=== PATIENT | male | born 1945 | race Caucasian/White ===

== ENCOUNTER 2017-02-23 17:59 | Inpatient (IN) | payer MEDICARE ==
[2017-02-23] MEDS ORDERED: NALOXONE 0.4 MG/ML 1 ML VIAL IV PRN (18:14)
--- NOTE | 2017-02-23 18:14 | ED ---
Fever HPI - General Stated Complaint: Neutropenia/sepsis Time Seen by Provider: 02/23/17 18:11 - History of Present Illness Initial Comments: Patient is sent to the emergency Department from an outside facility. Patient has already had a workup, and been diagnosed with sepsis. Patient has been started on antibiotics. Patient denies any belly or back pain. Nothing makes his symptoms better or worse. Review of Systems ROS Statement: Those systems with pertinent positive or pertinent negative responses have been documented in the HPI. ROS Other: All systems not noted in ROS Statement are negative. General Exam General appearance: alert, in no apparent distress Head exam: Present: atraumatic, normocephalic, normal inspection Eye exam: Present: normal appearance, PERRL, EOMI. Absent: scleral icterus, conjunctival injection, periorbital swelling ENT exam: Present: normal exam, mucous membranes moist Neck exam: Present: normal inspection. Absent: tenderness, meningismus, lymphadenopathy Respiratory exam: Present: normal lung sounds bilaterally. Absent: respiratory distress, wheezes, rales, rhonchi, stridor Cardiovascular Exam: Present: regular rate, normal rhythm, normal heart sounds. Absent: systolic murmur, diastolic murmur, rubs, gallop, clicks GI/Abdominal exam: Present: soft, normal bowel sounds. Absent: distended, tenderness, guarding, rebound, rigid Extremities exam: Present: normal inspection, full ROM, normal capillary refill. Absent: tenderness, pedal edema, joint swelling, calf tenderness Back exam: Present: normal inspection Neurological exam: Present: alert, oriented X3, CN II-XII intact Psychiatric exam: Present: normal affect, normal mood Skin exam: Present: warm, dry, intact, normal color. Absent: rash Medical Decision Making - Medical Decision Making patient sent from outside hospital for admission. He is admitted for sepsis. Disposition Clinical Impression: Sepsis Disposition: ADMITTED IP TO THIS [facility] Referrals: Meghann Worley MD [Primary Care Provider] - 1-2 days Time of Disposition: 18:14
[2017-02-23 20:25] VITALS: BMI 20.7
[2017-02-23] MEDS ORDERED: BENZONATATE 100 MG CAP PO PRN (21:25)
[2017-02-23] MEDS ORDERED: traMADol 50 MG TAB PO PRN (21:25)
[2017-02-23] MEDS ORDERED: ACETAMINOPHEN TAB 325 MG TAB PO PRN (21:33)
[2017-02-24] MEDS: SODIUM CHLORIDE 0.9% 1,000 ML IV SCH ×3 (00:13→17:33)
[2017-02-24] MEDS ORDERED: HYDROcodone/APAP 5-325MG 1 EACH TAB PO PRN (00:33)
[2017-02-24] MEDS ORDERED: ALPRAZolam 0.25 MG TAB PO PRN (00:33)
[2017-02-24] MEDS ORDERED: TEMAZEPAM 15 MG CAP PO PRN (00:34)
[2017-02-24] MEDS ORDERED: CEFEPIME 2 GM in SODIUM CHLORIDE 0.9% 50 ML IVPB ONE (01:00)
[2017-02-24 01:35] LABS: Anion Gap 9 mmol/L; Blood Urea Nitrogen 26 mg/dL (9-20); Calcium 8.4 mg/dL (8.4-10.2); Carbon Dioxide 22 mmol/L (22-30); Chloride 103 mmol/L (98-107); Glucose 135 mg/dL (74-99); Non-African American GFR(MDRD) >60 (>60 ml/min/1.73 sqM); Potassium 3.2 mmol/L (3.5-5.1); Sodium 134 mmol/L (137-145)
[2017-02-24 02:04] LABS: Aty Lym Flag Marked; CH 31.4; CHCM 33.4; HCT 25.4 % (39.0-53.0); HDW 2.82; HGB 8.6 gm/dL (13.0-17.5); Immature Gran Flag Marked; MCH 31.8 pg (25.0-35.0); MCHC 33.8 g/dL (31.0-37.0); MCV 94.2 fL (80.0-100.0); Mean Platelet Volume 8.8; RDW 15.8 % (11.5-15.5); WBC (Perox) 1.97
[2017-02-24 03:01] LABS: Add Differential Manual Differential
[2017-02-24 03:27] LABS: Band Neutrophils % 13 %; Metamyelocytes % 1 %; Nucleated Red Blood Cells 1 /100 WBC (0-0); Total Cells Counted 200
[2017-02-24 03:28] LABS: Polychromasia Present
[2017-02-24 07:36] LABS: Glucose,Whole Blood 98 mg/dL (75-99)
[2017-02-24] MEDS: INSULIN LISPRO (humaLOG) 300 UNIT/3 ML VIAL SQ SCH ×4 (08:13→21:29)
[2017-02-24] MEDS: ALLOPURINOL 100 MG TAB PO SCH ×2 (08:14→08:16)
[2017-02-24] MEDS: CEFEPIME 2 GM in SODIUM CHLORIDE 0.9% 50 ML IVPB SCH ×3 (08:14→23:18)
[2017-02-24 09:14] LABS: ALT 34 U/L (21-72); AST 20 U/L (17-59); Alkaline Phosphatase 76 U/L (38-126); Anion Gap 9 mmol/L; Blood Urea Nitrogen 23 mg/dL (9-20); Calcium 8.5 mg/dL (8.4-10.2); Carbon Dioxide 25 mmol/L (22-30); Chloride 105 mmol/L (98-107); Glucose 118 mg/dL (74-99); Non-African American GFR(MDRD) >60 (>60 ml/min/1.73 sqM); Potassium 3.2 mmol/L (3.5-5.1); Sodium 139 mmol/L (137-145); Total Bilirubin 0.3 mg/dL (0.2-1.3); Total Protein 5.4 g/dL (6.3-8.2)
[2017-02-24 10:01] LABS: Hemoglobin A1C 7.2 % (4.2-6.1)
--- NOTE | 2017-02-24 10:03 | HP ---
HISTORY AND PHYSICAL DATE OF SERVICE: 02/23/2017. CHIEF COMPLAINT: Weakness and possible sepsis. 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 Worley in the outpatient setting. The patient is also receiving chemotherapy from Dr. Lopez. The last chemotherapy was last week. The patient presented to [facility] with complaints of fever and hospice weakness. The patient was found to be hypotensive with pressure initially 114 but subsequently 76. Responded to IV fluids nicely. The patient was started on broad- spectrum IV antibiotics. White count is 1.1 and sepsis was considered and patient was sent to [facility] for evaluation and treatment. Patient admitted at this time. The patient also complains of hemoptysis about 2-3 days ago. The patient also had a petechial rashes also. There is no history of any rigors, chills. No history of headache loss of consciousness or seizures. PAST MEDICAL HISTORY: History of recently diagnosed lung cancer, history of CAD, history of COPD, diabetes, hypertension, hyperlipidemia, history of abdominal aortic aneurysm, history of gout. MEDICATIONS: Prior to admission include home medications are: 1. Ultram 50 mg q.6h p.r.n. 2. Tessalon 100 mg t.i.d. p.r.n. 3. Zyloprim 100 mg p.o. daily. 4. Glucovance 500 mg p.o. b.i.d. ALLERGIES: LIPITOR, LISINOPRIL. FAMILY HISTORY: History of cancer in the family. SOCIAL HISTORY: Previous history of smoking. Occasional alcohol intake. REVIEW OF SYSTEMS: ENT: No diminished hearing or vision. CARDIOVASCULAR: No angina. RESPIRATORY: As mentioned earlier. GI: No nausea. : No dysuria. NERVOUS SYSTEM: No numbness or weakness. ALLERGY/IMMUNOLOGY: No asthma or hayfever. MUSCULOSKELETAL: As mentioned. HEMATOLOGY: As mentioned. ENDOCRINE: No history of diabetes, hypertension. CONSTITUTIONAL: As mentioned. DERMATOLOGY: Negative. RHEUMATOLOGY: Negative. PSYCHIATRY: As mentioned earlier. PHYSICAL EXAMINATION: Patient is alert and oriented x3. Pulse is 108, blood pressure 111/69, respiration 18, temperature 96.9, pulse ox 94% room air. HEENT: Conjunctivae normal. Oral mucous moist. NECK: No jugular venous distention. No carotid bruit. No lymph node enlargement. CARDIOVASCULAR: S1, S2. No S3, no S4. RESPIRATORY: Breath sounds diminished in the bases. A few scattered rhonchi and crackles. Expiratory wheezing also present. ABDOMEN: Soft, nontender. No mass palpable. EXTREMITIES: No swelling. NERVOUS SYSTEM: Higher functions as mentioned. Moves all four limbs. No focal motor deficits. LYMPHATICS: No lymphadenopathy in the neck, axillae, or groin. SKIN: No rash, ulcer or bleeding. LABS: At this time shows: lactic acid 1.4. Further labs are pending at this time. ASSESSMENT: 1. Neutropenic sepsis. 2. Small-cell lung cancer on the right, status post chemotherapy. 3. Pancytopenia secondary to chemotherapy. 4. Hemoptysis. 5. History of coronary artery disease. 6. History of chronic obstructive pulmonary disease. 7. Hypertension. 8. Hyperlipidemia. 9. Degenerative joint disease. 10.History of gout. 11.History of abdominal aortic aneurysm. 12.History of coronary artery disease and stent. RECOMMENDATIONS AND DISCUSSION: In this 71-year-old gentleman who presented with multiple complex medical issues, will monitor patient closely. Continue the current management and continue symptomatic treatment. Otherwise I would recommend close follow up and Hematology Oncology is consulted. Portable chest x-ray will be ordered and continue to monitor. Guarded prognosis because of multiple complex medical issues. Further recommendations to follow. Repeat labs have been requested. Symptomatic treatment also will be provided. Guarded prognosis because of multiple complex medical issues. Further recommendations to follow. MMODL / IJN: [id number] /
[2017-02-24 11:33] LABS: Glucose,Whole Blood 108 mg/dL (75-99)
[2017-02-24] MEDS ORDERED: Potassium Replacement Protocol 1 EACH MISC MISCELLANE PRN ×2 (12:49→13:23)
[2017-02-24] MEDS ORDERED: Magnesium Replacement Protocol 1 EACH MISC MISCELLANE PRN (12:52)
[2017-02-24] MEDS: POTASSIUM CHLORIDE ER 20 MEQ TAB.ER PO SCH ×2 (13:44→15:20)
[2017-02-24 14:20] LABS: Appearance,Urine Clear (Clear); Bilirubin,Urine Negative (Negative); Glucose,Urine (UA) Negative (Negative); Ketones,Urine Negative (Negative); Leukocyte Esterase,Urine Negative (Negative); Nitrite,Urine Negative (Negative); PH, Urine 5.5 (5.0-8.0); Protein,Urine Trace (Negative); Specific Gravity,Urine 1.018 (1.001-1.035); UA Billing (MACRO vs. MICRO) CHEM; Urobilinogen,Urine <2.0 mg/dL (<2.0)
[2017-02-24 17:20] LABS: Glucose,Whole Blood 113 mg/dL (75-99)
--- NOTE | 2017-02-24 17:23 | P.PN ---
Subjective Date of service 02/24/2017. Progress note being dictated for Dr. Sutherland Interval history: This is a 71-year-old gentleman admitted with neutropenic sepsis, pancytopenia, hemoptysis in a patient with history of small cell lung CA , status post chemotherapy and multiple other medical issues. No further hemoptysis. Good diet intake, consuming 100%. Evaluated by a infectious disease and Levaquin added to antibiotic regimen in addition to cefepime. Afebrile. Blood, urine and sputum cultures pending. Chest x-ray pending. Status post fluid boluses; Blood pressure stable, tachycardic with heart rates in the low 100s. Hypokalemic, potassium 3.2. TIBC 2, neutrophils 0.4, hemoglobin 8.6, platelets 147. Review of systems: CONSTITUTIONAL: Reports fever, fatigue, weakness. No vigorous chills HEENT: No recent visual problems or hearing problems. Denies sore throat, consuming 100% of diet. CARDIOVASCULAR: No chest pain, orthopnea, PND, no palpitations, no syncope. PULMONARY: No shortness of breath, positive cough, prior hemoptysis. GASTROINTESTINAL: No diarrhea, no nausea, no vomiting, no abdominal pain. Normoactive bowel sounds. NEUROLOGICAL: No headaches, generalized weakness, no numbness. No loss of consciousness, no seizures HEMATOLOGICAL: Denies any bleeding. Positive petechiae rash. GENITOURINARY: Denies any burning micturition, frequency, or urgency. MUSCULOSKELETAL/RHEUMATOLOGICAL: Denies any joint pain, swelling, or any muscle pain. ENDOCRINE: Denies any polyuria or polydipsia. PSYCHIATRIC: No anxiety, no depression Active Medications Acetaminophen (Tylenol Tab) 650 mg PO Q6HR PRN PRN Reason: Fever and/ or mild pain Hydrocodone Bitart/Acetaminophen (Malone 5-325) 1 each PO Q6HR PRN PRN Reason: Moderate to Severe Pain Allopurinol (Zyloprim) 100 mg PO DAILY [facility] Last Admin: 02/24/17 08:16 Dose: Not Given Alprazolam (Xanax) 0.25 mg PO TID PRN PRN Reason: Anxiety Benzonatate (Tessalon Perles) 100 mg PO TID PRN PRN Reason: Cough Sodium Chloride (Saline 0.9%) 1,000 mls @ 100 mls/hr IV .Q10H [facility] Last Admin: 02/24/17 08:14 Dose: 100 mls/hr Cefepime HCl 2 gm/ Sodium (Chloride) 50 mls @ 100 mls/hr IVPB Q8HR [facility] Last Admin: 02/24/17 15:23 Dose: 100 mls/hr Insulin Human Lispro (Humalog) 0 unit SQ ACHS REED PRN Reason: Protocol Last Admin: 02/24/17 12:10 Dose: Not Given Levofloxacin (Levaquin) 750 mg PO 1600 [facility] Miscellaneous Information (Magnesium Per Protocol) 1 each MISCELLANE DAILY PRN ; Protocol PRN Reason: Per Protocol Miscellaneous Information (Potassium Per Protocol) 1 each MISCELLANE DAILY PRN ; Protocol PRN Reason: Per Protocol Naloxone HCl (Narcan) 0.2 mg IV Q2M PRN PRN Reason: Opioid Reversal Ondansetron HCl (Zofran) 4 mg IVP Q6HR PRN PRN Reason: Nausea And Vomiting Temazepam (Restoril) 15 mg PO HS PRN PRN Reason: Insomnia Tramadol HCl (Ultram) 50 mg PO Q6HR PRN PRN Reason: Pain Objective - Vital Signs Vital signs: Vital Signs Temp 97.6 F 02/24/17 15:00 Pulse 104 H 02/24/17 15:00 Resp 16 02/24/17 15:00 BP 121/71 02/24/17 15:00 Pulse Ox 94 L 02/24/17 15:00 Intake & Output 02/23/17 02/24/17 02/24/17 18:59 06:59 18:59 Output Total 300 Balance -300 Weight 62.142 kg 63.6 kg 63.6 kg Output: Urine 300 Other: Voiding Method Urinal Urinal # Voids 1 3 # Bowel Movements 1 1 - Exam PHYSICAL EXAM: VITAL SIGNS: As above GENERAL: Sitting up in bed, no acute distress HEENT: Conjunctivae normal. eyes normal. Oral mucosa moist. NECK: No JVD. No thyroid enlargement. No LNs CARDIOVASCULAR: S1, S2 muffled. No murmur RESPIRATION: Breath sounds diminished in the bases. Bilateral expiratory wheezing with Occasional scattered rhonchi, no crackles. No bronchial breathing. ABDOMEN: Soft, nontender . No guarding. no masses palpable. Positive Bowel sounds. LEGS: No edema. no swelling PSYCHIATRY: Alert and oriented -3, mood and affect normal. NERVOUS SYSTEM: Cranial N 2-12 grossly normal. Moves all 4 limbs. No focal deficits. No sensory deficit. Skin: no ulcer petechiae rashes scattered on extremities Joints: No active swelling. No inflammation. Lymphatic system. No LN neck axilla or groin. - Labs CBC & Chem 7: 02/24/17 00:46 02/24/17 08:32 Labs: Abnormal Lab Results - Last 24 Hours (Table) 02/23/17 02/24/17 02/24/17 Range/Units 22:11 00:46 00:46 WBC 2.0 L* (3.8-10.6) k/uL RBC 2.70 L (4.30-5.90) m/uL Hgb 8.6 L (13.0-17.5) gm/dL Hct 25.4 L (39.0-53.0) % RDW 15.8 H (11.5-15.5) % Plt Count 147 L (150-450) k/uL Neutrophils # (Manual) 0.40 L (1.3-7.7) k/uL Metamyelocytes # (Man) 0.02 H (0) k/uL Nucleated RBCs 1 H (0-0) /100 WBC Sodium 134 L (137-145) mmol/L Potassium 3.2 L (3.5-5.1) mmol/L BUN 26 H (9-20) mg/dL Glucose 135 H (74-99) mg/dL POC Glucose (mg/dL) (75-99) mg/dL Hemoglobin A1c 7.2 H (4.2-6.1) % Total Protein (6.3-8.2) g/dL Albumin (3.5-5.0) g/dL Urine Protein (Negative) 02/24/17 02/24/17 02/24/17 Range/Units 08:32 11:31 13:00 WBC (3.8-10.6) k/uL RBC (4.30-5.90) m/uL Hgb (13.0-17.5) gm/dL Hct (39.0-53.0) % RDW (11.5-15.5) % Plt Count (150-450) k/uL Neutrophils # (Manual) (1.3-7.7) k/uL Metamyelocytes # (Man) (0) k/uL Nucleated RBCs (0-0) /100 WBC Sodium (137-145) mmol/L Potassium 3.2 L (3.5-5.1) mmol/L BUN 23 H (9-20) mg/dL Glucose 118 H (74-99) mg/dL POC Glucose (mg/dL) 108 H (75-99) mg/dL Hemoglobin A1c (4.2-6.1) % Total Protein 5.4 L (6.3-8.2) g/dL Albumin 2.7 L (3.5-5.0) g/dL Urine Protein Trace H (Negative) Assessment and Plan Plan: 1. Neutropenic sepsis 2. Small cell lung CA on the right, status post chemotherapy 3. Pancytopenia secondary to chemotherapy 4. Hemoptysis 5. CAD, history of stent 6. History of abdominal aortic aneurysm 7. Hypokalemia Plan: Continue on current medication regime ,monitoring and symptomatic treatment. Antibiotics as per infectious disease. Electrolyte supplementation as per ordered replacement protocol. follow closely with oncology. Close monitoring of electrolytes, WBC, platelets, hemoglobin, neutrophils with repeat labs ordered for a.m. family discussing potential hospice. Further recommendations to follow. The impression and plan of care has been dictated as directed as a scribe. : I performed a H&P examination of this patient and discussed the same with the dictator. I agree with the dictator's note. Any additional findings/opinions/ etc. will be noted.
[2017-02-24] MEDS: LEVOFLOXACIN 750 MG TAB PO SCH (17:34)
--- NOTE | 2017-02-24 17:57 | P.CONS ---
History of Present Illness - Reason for Consult Consult date: 02/24/17 SIRS, possible sepsis, lung cancer on chemo - History of Present Illness Mr. Valadez is a 71-year-old white male, well known to our service. The patient was diagnosed with stage III squamous cell carcinoma of the lung, in early 2017. He underwent concurrent chemoradiation with [employer]-16 and cisplatin. He finished treatment about 3 months ago, with scans at that time showing a good partial response. He was seen in the office last week for first follow-up after restaging CAT scans. Unfortunately scan showed progression. The patient had also noted marked some dramatic decline, with decreased appetite, weakness, somewhat unsteady gait over the preceding 2-3 weeks. Started on second line chemotherapy with Taxol the first dose given last week. Tolerance was somewhat poor, with the patient noting further decrease in appetite, marked weakness and dizziness on standing up. He did receive some IV hydration, but symptoms continue to progress. He therefore went into the emergency room at [facility]. His family had the reported a fever in addition to the above symptoms. However the temperature noted was 100.1 ( greater than 100.4 being considered a fever). The patient however was markedly neutropenic with a total white count in the low 1000 range. In addition he appeared to be very weak and clinically dehydrated. Marked orthostatic hypotension was noted. The patient was therefore transferred here for further evaluation and and management. The patient has a stable cough. He denied any oral ulcers, new urinary or bowel complaints. He has been aggressively hydrated, and started on IV antibiotics. Review of Systems Constitutional: Reports fatigue, Reports malaise, Reports poor appetite, Reports weakness, Reports weight loss Eyes: denies blurred vision, denies pain Ears: deny: decreased hearing, ear discharge, earache, tinnitus Ears, nose, mouth and throat: Denies headache, Denies sore throat Cardiovascular: Reports lightheadedness, Reports shortness of breath Respiratory: Reports cough, Reports dyspnea Gastrointestinal: Reports constipation Genitourinary: Reports as per HPI (Decreased urine output. Otherwise no specific complaint) Musculoskeletal: Reports muscle weakness Integumentary: Denies pruritus, Denies rash Neurological: Reports weakness Psychiatric: Reports confusion (Mild, transient, when in the ER at [facility]) Endocrine: Reports weight change Hematologic/Lymphatic: Reports as per HPI Past Medical History Past Medical History: Coronary Artery Disease (CAD), Cancer, COPD, Diabetes Mellitus, Hyperlipidemia, Hypertension, Renal Disease Additional Past Medical History / Comment(s): lung CA (diagnosed in June), current chemo treatments (last one Feb 14), diverticulitis, gout, anemia, AAA , vascular problems in bilat legs, one functioning kidney History of Any Multi-Drug Resistant Organisms: None Reported Past Surgical History: Appendectomy, Heart Catheterization With Stent Additional Past Surgical History / Comment(s): Carotid endarterectomy on Right Past Anesthesia/Blood Transfusion Reactions: No Reported Reaction Date of Last Stent Placement:: 2010 Past Psychological History: No Psychological Hx Reported Smoking Status: Former smoker Past Alcohol Use History: None Reported Past Drug Use History: None Reported - Past Family History Brother(s) Family Medical History: Cancer Medications and Allergies Home Medications Medication Instructions Recorded Confirmed Type Allopurinol [Zyloprim] 100 mg PO DAILY 02/23/17 02/23/17 History Atp-Pro Powder 5 ml PO DAILY 02/23/17 02/23/17 History Benzonatate [Tessalon Perles] 100 mg PO TID PRN 02/23/17 02/23/17 History metFORMIN HCL [Glucophage] 500 mg PO BID 02/23/17 02/23/17 History traMADol HCL [Ultram] 50 mg PO Q6HR PRN 02/23/17 02/23/17 History Allergies Allergy/AdvReac Type Severity Reaction Status Date / Time atorvastatin [From Lipitor] Allergy Swelling Verified 02/23/17 20:19 lisinopril Allergy Swelling Verified 02/23/17 20:19 Physical Exam Vitals: Vital Signs Temp Pulse Pulse Resp BP BP Pulse Ox 02/24/17 15:00 97.6 F 104 H 16 121/71 94 L 02/24/17 07:00 97.7 F 106 H 16 129/67 95 02/23/17 23:00 98.8 F 121 H 16 91/50 93 L 02/23/17 22:00 16 02/23/17 19:46 96.9 F L 97 18 111/67 94 L 02/23/17 19:03 97.2 F L 108 H 20 102/62 96 02/23/17 18:30 106 H 02/23/17 18:21 97.2 F L 102 H 17 107/69 96 02/23/17 18:07 97.4 F L 104 H 18 102/62 96 Intake and Output 02/24/17 02/24/17 02/24/17 06:59 14:59 22:59 Output Total 300 Balance -300 Output: Urine 300 Other: Voiding Method Urinal # Voids 1 3 # Bowel Movements 1 1 Weight 63.6 kg Patient Weight 02/25/17 06:59 Weight 63.6 kg - Constitutional General appearance: no acute distress - EENT Oral cavity and lips mildly dry. Otherwise no major abnormalities Eyes: EOMI, PERRLA ENT: hearing grossly normal - Neck Neck: no lymphadenopathy Thyroid: bilateral: normal size - Respiratory Respiratory: bilateral: CTA - Cardiovascular Rhythm: regular Heart sounds: normal: S1, S2 - Gastrointestinal General gastrointestinal: normal bowel sounds, soft Localized gastrointestinal: tender: epigastric periumbilical - Integumentary Integumentary: normal - Neurologic Neurologic: CNII-XII intact - Musculoskeletal Musculoskeletal: generalized weakness - Psychiatric Psychiatric: A&O x's 3, appropriate affect, intact judgment & insight Results CBC & Chem 7: 02/24/17 00:46 02/24/17 08:32 Labs: Abnormal Lab Results - Last 24 Hours (Table) 02/23/17 02/24/17 02/24/17 Range/Units 22:11 00:46 00:46 WBC 2.0 L* (3.8-10.6) k/uL RBC 2.70 L (4.30-5.90) m/uL Hgb 8.6 L (13.0-17.5) gm/dL Hct 25.4 L (39.0-53.0) % RDW 15.8 H (11.5-15.5) % Plt Count 147 L (150-450) k/uL Neutrophils # (Manual) 0.40 L (1.3-7.7) k/uL Metamyelocytes # (Man) 0.02 H (0) k/uL Nucleated RBCs 1 H (0-0) /100 WBC Sodium 134 L (137-145) mmol/L Potassium 3.2 L (3.5-5.1) mmol/L BUN 26 H (9-20) mg/dL Glucose 135 H (74-99) mg/dL POC Glucose (mg/dL) (75-99) mg/dL Hemoglobin A1c 7.2 H (4.2-6.1) % Total Protein (6.3-8.2) g/dL Albumin (3.5-5.0) g/dL Urine Protein (Negative) 02/24/17 02/24/17 02/24/17 Range/Units 08:32 11:31 13:00 WBC (3.8-10.6) k/uL RBC (4.30-5.90) m/uL Hgb (13.0-17.5) gm/dL Hct (39.0-53.0) % RDW (11.5-15.5) % Plt Count (150-450) k/uL Neutrophils # (Manual) (1.3-7.7) k/uL Metamyelocytes # (Man) (0) k/uL Nucleated RBCs (0-0) /100 WBC Sodium (137-145) mmol/L Potassium 3.2 L (3.5-5.1) mmol/L BUN 23 H (9-20) mg/dL Glucose 118 H (74-99) mg/dL POC Glucose (mg/dL) 108 H (75-99) mg/dL Hemoglobin A1c (4.2-6.1) % Total Protein 5.4 L (6.3-8.2) g/dL Albumin 2.7 L (3.5-5.0) g/dL Urine Protein Trace H (Negative) 02/24/17 Range/Units 17:18 WBC (3.8-10.6) k/uL RBC (4.30-5.90) m/uL Hgb (13.0-17.5) gm/dL Hct (39.0-53.0) % RDW (11.5-15.5) % Plt Count (150-450) k/uL Neutrophils # (Manual) (1.3-7.7) k/uL Metamyelocytes # (Man) (0) k/uL Nucleated RBCs (0-0) /100 WBC Sodium (137-145) mmol/L Potassium (3.5-5.1) mmol/L BUN (9-20) mg/dL Glucose (74-99) mg/dL POC Glucose (mg/dL) 113 H (75-99) mg/dL Hemoglobin A1c (4.2-6.1) % Total Protein (6.3-8.2) g/dL Albumin (3.5-5.0) g/dL Urine Protein (Negative) Assessment and Plan (1) SIRS (systemic inflammatory response syndrome) Narrative/Plan: The patient's condition was felt to be concerning for sepsis. This was prompted by his neutropenia, as well as a history of fever. However, as noted above, the patient's recorded temperature did not clearly meet the definition of fever. He was significantly neutropenic. In addition he had elevated heart rate, and low blood pressure. At this time I'm not totally convinced that the patient has an infection. His symptoms are more likely to be due to marked dehydration, as well as progressive fatigue and weakness related to his chemotherapy. He was already quite compromised even prior to starting treatment , as noted in the HPI. It is reasonable to cover him with antibiotics and rule out an infection however. Per my discussion with the ER physician at [facility], chest x-ray did not show any concerning findings. UA is also normal. He has not had a fever while here. Continue antibiotics in the absence of any definite finding of infection, until at least W BC recovers Status: Acute (2) Pancytopenia due to antineoplastic chemotherapy Narrative/Plan: The patient has developed significant drop in counts related to chemotherapy. The previously signed improve compared to the level in the ER yesterday, and is 2000. Hemoglobin is in a safe range at 8.6 and platelets are near normal at 147. Given the significant drop in counts with single agent chemotherapy, we will likely have to consider dose reduction. In addition appears to be unlikely that he would be a candidate for combination chemotherapy. Continue to monitor, with transfusion support if needed Status: Acute (3) Non-small cell lung cancer Narrative/Plan: The patient has a lot metastatic recurrence within about 3 months of completing definitive chemoradiation. Overall prognosis therefore felt to be quite guarded, especially given his poor performance status. He does want active treatment. At this time the plan would be to continue him on on single agent chemotherapy with dose modification as appropriate. This will resume in the outpatient setting, once his recovery from the acute event. Biomarkers have been requested on the original tumor sample and are pending. If eligible, he will be changed over to an appropriate targeted agent. Status: Acute
[2017-02-24 20:43] LABS: Glucose,Whole Blood 104 mg/dL (75-99)
[2017-02-24] MEDS: ONDANSETRON 4 MG/2 ML VIAL IVP PRN (23:18)
[2017-02-25] MEDS: SODIUM CHLORIDE 0.9% 1,000 ML IV SCH (04:21)
[2017-02-25 07:42] LABS: HCT 26.9 % (39.0-53.0); HDW 3.04; HGB 8.5 gm/dL (13.0-17.5); Hypochromasia Slight; Immature Gran Flag Marked; MCH 30.8 pg (25.0-35.0); MCHC 31.7 g/dL (31.0-37.0); Mean Platelet Volume 8.3; RBC 2.78 m/uL (4.30-5.90); RDW 15.9 % (11.5-15.5); WBC (Perox) 10.68
[2017-02-25 07:46] LABS: Glucose,Whole Blood 100 mg/dL (75-99)
[2017-02-25] MEDS: INSULIN LISPRO (humaLOG) 300 UNIT/3 ML VIAL SQ SCH ×4 (08:09→20:56)
[2017-02-25 08:17] LABS: Anion Gap 9 mmol/L; Blood Urea Nitrogen 19 mg/dL (9-20); Calcium 7.9 mg/dL (8.4-10.2); Carbon Dioxide 22 mmol/L (22-30); Chloride 106 mmol/L (98-107); Glucose 100 mg/dL (74-99); Magnesium 1.5 mg/dL (1.6-2.3); Non-African American GFR(MDRD) >60 (>60 ml/min/1.73 sqM); Potassium 3.1 mmol/L (3.5-5.1); Sodium 137 mmol/L (137-145)
--- NOTE | 2017-02-25 08:18 | XR ---
EXAMINATION TYPE: XR chest 2V DATE OF EXAM: 02/25/2017 HISTORY: pneumonia. REFERENCE: NONE. FINDINGS: The lungs are overinflated. Heart size is upper limits of normal. There is a right lower lo be infiltrate. Pleural spaces are clear. IMPRESSION: 1. RIGHT LOWER LOBE PNEUMONIA. 2. COPD. 3. BORDERLINE CARDIOMEGALY.
[2017-02-25 08:19] LABS: Add Differential Manual Differential
[2017-02-25 08:29] LABS: Band Neutrophils % 9 %; Metamyelocytes % 6 %; Myelocytes % 8 %; Nucleated Red Blood Cells 1 /100 WBC (0-0); Promyelocytes % 1 %; Total Cells Counted 200
[2017-02-25 08:30] LABS: Manual Review Performed; Toxic Granulation Present; WBC 9.5 k/uL (3.8-10.6)
--- NOTE | 2017-02-25 08:42 | CONS ---
CONSULTATION DATE OF SERVICE: 02/24/2017 REASON FOR CONSULTATION: Sepsis, pneumonia. HISTORY OF PRESENT ILLNESS: The patient is a 71-year-old, male with past medical history significant for a small cell lung cancer right lung for which the patient is under chemo with Dr. Lopez with last chemo February 17. The patient was sent to the [facility] for evaluation of fever and weakness. Apparently symptoms started the day prior to presentation to hospital. The patient had been very weak and tired, no energy. The patient also complaining of some hemoptysis. A few days prior his symptoms got worse especially with weakness. Patient denies significant chest pain. He continued having some coughing and brining up some yellowish sputum. No URI symptoms. No nausea, no vomiting. No abdominal pain. No diarrhea. The patient did have a chest x-ray at that facility that showed evidence of right upper lobe consolidation. With a white count of 1.1 we with suspected sepsis as the patient was hypotensive with a systolic around 76. Patient subsequently has been transferred to the [facility] for further management. The patient was started on cefepime and ID was consulted for further recommendation regarding antibiotic therapy. REVIEW OF SYSTEMS: CONSTITUTIONAL: Positive for weakness along with the fever. EYES: No complaint. ENT: No complaint. RESPIRATORY: As per HPI. CARDIOVASCULAR: No complaint. GENITOURINARY: No complaint. GASTROINTESTINAL: No complaint. MUSCULOSKELETAL: No complaint. INTEGUMENTARY: No complaint. PSYCHOLOGICAL: No complaint. NEUROLOGICAL: No complaint. PAST MEDICAL HISTORY: Significant for right-sided small cell lung cancer, coronary artery disease, COPD, diabetes mellitus, hypertension, hyperlipidemia, abdominal aortic aneurysm and gout. SURGICAL HISTORY: Bronchoscopy with biopsy. SOCIAL HISTORY: Positive for smoking. Social drinking. No drug use. FAMILY HISTORY: No pertinent findings noticed. ALLERGIES: To LIPITOR AND LISINOPRIL. MEDICATION: The patient is currently on: 1. Tylenol. 2. Providence. 3. Zyloprim. 4. Xanax. 5. Cefepime 2 g q.8h. 6. Humalog. 7. Narcan. 8. Zofran. 9. Restoril. 10.Ultram. EXAMINATION: On examination, blood pressure is 121/74 with a pulse of 104, temperature 97.6. He is 94% on room air. General description is an elderly male up in the bed in no distress. No tachypnea or accessory muscles of respiration use. HEENT: Shows pallor. No scleral icterus. Oral mucous membranes dry. NECK: Trachea is central. No thyromegaly. LUNGS: Unlabored breathing. Coarse breath sounds bilaterally. No wheezes. HEART: S1, S2. Regular rate and rhythm. ABDOMEN: Soft. There is no tenderness. No guarding. No rigidity. EXTREMITIES: No edema feet. SKIN: No rash or mass palpable. NEUROLOGICAL: Patient is awake, alert, oriented x3. Mood and affect normal. LAB: Hemoglobin 8.6, white count of 2.0 with a neutrophil count of 0.04. BUN of 26, creatinine 0.90 and UA is negative. DIAGNOSTIC IMPRESSION AND PLAN: The patient admitted to the hospital with fever, hypertension with evidence of leukopenia/neutropenia in a patient who does have a history of small cell lung cancer with right upper lobe pneumonia. We need to cover for the resistant gram-negative pathogen which is the likely cause of his fever and pneumonia. PLAN: 1. Will try to obtain sputum for Gram stain, culture, sensitivity. 2. We will keep the patient of cefepime. I will add Levaquin. 3. Repeat chest x-ray tomorrow. 4. We will follow up on his clinical condition and culture to further adjust medication if needed. Thank you for this consultation. Will follow this patient along with you. MMODL / IJN: [id number] /
[2017-02-25] MEDS: CEFEPIME 2 GM in SODIUM CHLORIDE 0.9% 50 ML IVPB SCH ×3 (08:57→23:28)
[2017-02-25] MEDS: ALLOPURINOL 100 MG TAB PO SCH ×2 (08:58→08:59)
[2017-02-25] MEDS: ONDANSETRON 4 MG/2 ML VIAL IVP PRN (09:06)
[2017-02-25] MEDS: POTASSIUM CHLORIDE ER 20 MEQ TAB.ER PO SCH ×4 (10:51→19:22)
[2017-02-25] MEDS: MAGNESIUM SULFATE-D5W PMX 1 GM in DEXTROSE/WATER 1 100ML.BAG IVPB SCH ×2 (10:51→12:28)
[2017-02-25 12:21] LABS: Glucose,Whole Blood 107 mg/dL (75-99)
[2017-02-25] MEDS: 0.9% NACL WITH KCL 20 MEQ/L 1,000 ML IV SCH (12:30)
[2017-02-25] MEDS: LEVOFLOXACIN 750 MG TAB PO SCH (15:50)
[2017-02-25 17:07] LABS: Glucose,Whole Blood 100 mg/dL (75-99)
[2017-02-25 20:30] LABS: Glucose,Whole Blood 117 mg/dL (75-99)
[2017-02-25] MEDS: IPRATROPIUM-ALBUTEROL 3 ML NEB INHALATION SCH (20:50)
[2017-02-26] MEDS: 0.9% NACL WITH KCL 20 MEQ/L 1,000 ML IV SCH ×2 (01:55→13:20)
[2017-02-26 07:14] LABS: Glucose,Whole Blood 114 mg/dL (75-99)
[2017-02-26 07:31] LABS: HCT 28.2 % (39.0-53.0); HDW 2.99; HGB 9.2 gm/dL (13.0-17.5); Hypochromasia Slight; Immature Gran Flag Marked; MCH 31.6 pg (25.0-35.0); MCHC 32.6 g/dL (31.0-37.0); MCV 96.9 fL (80.0-100.0); RBC 2.92 m/uL (4.30-5.90); RDW 15.8 % (11.5-15.5); WBC 12.7 k/uL (3.8-10.6); WBC (Perox) 12.94
[2017-02-26] MEDS: IPRATROPIUM-ALBUTEROL 3 ML NEB INHALATION SCH ×2 (07:31→12:00)
--- NOTE | 2017-02-26 07:31 | PN ---
PROGRESS NOTE DATE OF SERVICE: 02/25/17 This 71-year-old gentleman who was admitted with neutropenic sepsis is being closely monitored. The patient is feeling much better. The chest x-ray done today which showed right lower lobe pneumonia and COPD and borderline cardiomegaly. No fever. No cough. PAST MEDICAL HISTORY: Noted. REVIEW OF SYSTEMS: Cardiovascular: No angina or palpitations. Respiratory: Occasional cough. GI: As mentioned earlier. no nausea or vomiting. Central nervous system: No focal deficits. CURRENT MEDICATIONS ARE: Reviewed and include: 1. Tylenol 650 q6h p.r.n. 2. [place]. 3. Zyloprim. 4. Cefepime 2 gm IV q.8h. 5. Levaquin. 6. Zofran. 7. Restoril. PHYSICAL EXAM: Patient is alert, oriented times three. The pulse is 74, blood pressure 157/90, respiratory rate 17, temperature 98.4, pulse ox 97% on room air. HEENT: Conjunctivae normal. Neck: No jugular venous distention. Cardiovascular: S1, S2 muffled. Respiratory: Breath sounds diminished at the bases, a few scattered rhonchi and crackles. ABDOMEN: Soft, nontender, no mass palpable. Legs: No edema. No swelling. Central nervous system: Higher functions as mentioned earlier. Moves all four limbs. No focal deficits. Lymphatics: No lymph nodes palpable in the neck, axillae or groin. SKIN: No ulcer, rashes or bleeding. LAB STUDIES: WBC 7.9, hemoglobin 8.5, potassium 3.1, magnesium 1.5. ASSESSMENT: 1. Neutropenic sepsis. 2. Right lower lobe pneumonia possibly gram-negative. 3. Small-cell lung cancer on the right. Status post chemotherapy. 4. Pancytopenia secondary to chemotherapy. 6. Coronary artery disease, history of stent. 8. Hypokalemia. RECOMMENDATIONS AND DISCUSSION: Recommend to continue current medications, continue symptomatic treatment. Continue with broad-spectrum IV antibiotics. Follow the cultures which are negative so far. Chest x-ray has been reviewed personally by me. The prognosis guarded because of multiple complex medical issues. We also recommend to add bronchodilators to current regimen also. Further recommendations to follow. MMODL / IJN: [id number] / [facility]
[2017-02-26] MEDS: INSULIN LISPRO (humaLOG) 300 UNIT/3 ML VIAL SQ SCH ×2 (07:40→13:15)
[2017-02-26 07:48] LABS: Anion Gap 7 mmol/L; Blood Urea Nitrogen 14 mg/dL (9-20); Calcium 8.2 mg/dL (8.4-10.2); Carbon Dioxide 23 mmol/L (22-30); Chloride 107 mmol/L (98-107); Glucose 109 mg/dL (74-99); Magnesium 1.5 mg/dL (1.6-2.3); Non-African American GFR(MDRD) >60 (>60 ml/min/1.73 sqM); Sodium 137 mmol/L (137-145)
[2017-02-26 07:50] VITALS: BP 158/81; PULSE 90; RESP 16; TEMP 96.4
[2017-02-26] MEDS: CEFEPIME 2 GM in SODIUM CHLORIDE 0.9% 50 ML IVPB SCH (08:07)
[2017-02-26] MEDS: ALLOPURINOL 100 MG TAB PO SCH (08:07)
[2017-02-26 08:38] LABS: Add Differential Manual Differential
[2017-02-26 08:41] LABS: Band Neutrophils % 5 %; Metamyelocytes % 7 %; Myelocytes % 12 %; Nucleated Red Blood Cells 0 /100 WBC (0-0); Total Cells Counted 200
[2017-02-26 08:42] LABS: Manual Review Performed; Toxic Granulation Present
[2017-02-26] MEDS: MAGNESIUM SULFATE-D5W PMX 1 GM in DEXTROSE/WATER 1 100ML.BAG IVPB SCH ×2 (10:03→11:11)
[2017-02-26 11:52] LABS: Glucose,Whole Blood 150 mg/dL (75-99)
--- NOTE | 2017-02-26 18:37 | P.DS ---
Providers Date of admission: 02/23/17 18:14 Attending physician: Rachael Sutherland Consults: 02/23/17 21:32 Consult Physician Routine Consulting Provider: Mykel Lopez Consult Reason/Comments: Lung CA, known to pt Do you want consulting provider notified?: Yes, Notify in am 02/24/17 01:21 Consult Physician Routine Consulting Provider: Sally Wu Consult Reason/Comments: sepsis Do you want consulting provider notified?: Yes Primary care physician: Meghann Worley [place] [facility] Course: This 71-year-old gentleman with a past medical history of small cell lung cancer the right was admitted neutropenic sepsis and as well as right lower pneumonia. Patient treated antibiotics. Improved significantly. The patient improved. Seen by hematology oncology and pulmonology. Patient be discharged in a stable pressure the guarded prognosis. On exam vitals stable. Cardio S1-S2 normal. Respiratory system few rhonchi. Abdomen soft nontender. Final diagnosis 1. Neutropenic sepsis. 2. Right lower lobe pneumonia possibly gram-negative. 3. Small cell lung cancer on the right status post chemotherapy. 4. Pancytopenia secondary to chemotherapy. 5. Coronary disease history of stent 6. Hypokalemia. Plan - Discharge Summary New Discharge Prescriptions: New Levofloxacin [Levaquin] 750 mg PO 1600 #5 tab Continue traMADol HCL [Ultram] 50 mg PO Q6HR PRN PRN Reason: Pain Benzonatate [Tessalon Perles] 100 mg PO TID PRN PRN Reason: Cough Allopurinol [Zyloprim] 100 mg PO DAILY metFORMIN HCL [Glucophage] 500 mg PO BID Atp-Pro Powder 5 ml PO DAILY Discharge Medication List Allopurinol [Zyloprim] 100 mg PO DAILY 02/23/17 [History] Atp-Pro Powder 5 ml PO DAILY 02/23/17 [History] Benzonatate [Tessalon Perles] 100 mg PO TID PRN 02/23/17 [History] metFORMIN HCL [Glucophage] 500 mg PO BID 02/23/17 [History] traMADol HCL [Ultram] 50 mg PO Q6HR PRN 02/23/17 [History] Levofloxacin [Levaquin] 750 mg PO 1600 #5 tab 02/26/17 [Rx] Follow up Appointment(s)/Referral(s): Meghann Worley MD [Primary Care Provider] - 1-2 days Ambulatory/Diagnostic Orders: Complete Blood Count w/diff [LAB.AMB] Location: Determined By Patient Patient Instructions/Handouts: Type 2 Diabetes in Adults (DC) Activity/Diet/Wound Care/Special Instructions: DIET CONSISTENT CARB ACT LIMITED TILL F/U Discharge Disposition: HOME SELF-CARE
== END 2017-02-26 14:38 | disposition home or self-care (01) | DRG 871 ==
LOC: EC 17:59 → SUPCPDRO 17:59 → 4MS4W 18:14
PROVIDERS: ADMIT Hospitalist; ATTEND Hospitalist
DX: A41.9 Sepsis, unspecified organism (principal); D61.810 Antineoplastic chemotherapy induced pancytopenia; J15.6 Pneumonia due to other Gram-negative bacteria; C34.91 Malignant neoplasm of unspecified part of right bronchus or lung; E86.0 Dehydration; J44.0 Chronic obstructive pulmonary disease with (acute) lower respiratory infection; I10 Essential (primary) hypertension; R04.2 Hemoptysis; E11.9 Type 2 diabetes mellitus without complications; E78.5 Hyperlipidemia, unspecified; E87.6 Hypokalemia; I25.10 Atherosclerotic heart disease of native coronary artery without angina pectoris; I95.1 Orthostatic hypotension; M10.9 Gout, unspecified; M19.90 Unspecified osteoarthritis, unspecified site; T45.1X5A Adverse effect of antineoplastic and immunosuppressive drugs, initial encounter; Z80.9 Family history of malignant neoplasm, unspecified; Z88.8 Allergy status to other drugs, medicaments and biological substances; Z86.79 Personal history of other diseases of the circulatory system; Z87.891 Personal history of nicotine dependence; Z95.5 Presence of coronary angioplasty implant and graft; R23.3 Spontaneous ecchymoses; Z79.84 Long term (current) use of oral hypoglycemic drugs; Z79.899 Other long term (current) drug therapy
CPT/HCPCS: 71020; 80048; 80053; 81003; 83036; 83605; 83735; 84132; 85025; 87040; 87086; 99285